=== PATIENT | female | born 1955 | race Caucasian/White ===

== ENCOUNTER 2023-05-05 09:58 | Outpatient (AMB) | payer OTHER, SELFPAY ==
--- NOTE | 2023-05-05 10:03 | MHC.OFFVIS ---
Intake Vital Signs 05/05/23 10:05 Height 5 ft Weight 194 lb 4 oz BMI 37.9 BP 150/82 H Blood Pressure Location Lt brachial Position Sitting Pulse 92 Pulse Source Pulse Oximeter Pulse Oximetry (%) 98 Oxygen Delivery Method Room Air Intake Visit Reasons: ENP-Neuropahty on both legs -Unable to Conf Intake Note: Pt presents today for neuropathy in legs for a long time. States sxs are worst when walking Allergies No Known Allergies Allergy (Verified 05/05/23 10:08) HPI HPI Comments History of Present Illness Details 67 y/o female patient with lumbar radiculopathy, T2 DM, HTN, CHF and CAD presents for new in-person visit for evaluation of neuropathy. Pt reports bilateral leg cramping, really bad sometimes and it bothers her sleep. She has frequent arousals with the leg cramping. Pt also reports numbness of her lower legs and pins and needle pain on her feet, L>R. Pt was taking magnesium but it is discontinued. She is having vitamin B12 injection monthly. Pt states that she has intermittent left hand numbness and it goes up to shoulder. Denies neck or back injury. Pt does not sleep well, due to the leg cramping and feet numbness. She also reports snoring and daytime sleepiness. Pt does not want to do sleep study to r/o sleep apnea. [facility] Medical History (Updated 05/05/23 @ 10:43 by Netta Garcia CNP) Appendicitis Gallbladder calculus Social History (Updated 05/05/23 @ 10:13 by Vivian Park) Household Members: Spouse Alcohol intake: never Patient Tobacco Use Status: Never used Tobacco Review of Systems Const All systems reviewed & are unremarkable except as noted in HPI and below ENT Reports Normal hearing present Neuro Reports Normal hearing present Physical Exam Vital Signs: Last Vital Signs Pulse 92 05/05/23 10:05 BP 150/82 H 05/05/23 10:05 Pulse Ox 98 05/05/23 10:05 Oxygen Delivery Method Room Air 05/05/23 10:05 BMI result Body Mass Index 37.9 Const General: cooperative Nutritional Appearance: obese Orientation/consciousness: patient oriented x3 Neck Neck: Yes full ROM and Yes supple Resp Effort & Inspection: normal respiratory effort and able to speak in complete sentences Neuro General: patient oriented x3 and moves all extremities Cranial nerves: Yes Bilaterally intact EOM present, Yes Normal facial strength present, Yes Midline tongue present, Yes Symmetric palate elevation present, Yes Normal hearing present, Yes Ability to bilaterally rotate head present and Yes Ability to bilaterally elevate shoulders present Cognition (Neuro): normal cognition Gait exam (Neuro): Antalgic gait present Motor exam (neuro): 5/5 motor strength present throughout, Pronator motor function not present and no tremor noted Deep tendon reflexes (DTR's): Right brachioradialis reflex intensity grade: 2+, Left brachioradialis reflex intensity grade: 2+, Right patellar reflex intensity grade: 3+ and Left patellar reflex intensity grade: 1+ Coordination: [id number] test normal Assessment & Plan Assessment & Plan (1) Neuropathy of lower extremity: Code(s): G57.90 - Unspecified mononeuropathy of unspecified lower limb Plan Advised patient to undergo EMG of lower extremity to assess neuropathy. Will check labs, TSH and ESR for reversible causes of neuropathy. Advised patient to try gabapentin 100 mg, 1-3 capsules q HS for muscle cramping and needle pain. Orders: Orders NE electromyogram (EMG) 05/05/23 G57.90 - Unspecified mononeuropathy of unspecified lower limb TSH reflex Free T4 05/05/23 E11.9 - Type 2 diabetes mellitus without complications, G57.90 - Unspecified mononeuropathy of unspecified lower limb Erythrocyte Sedimentation Rate 05/05/23 E11.9 - Type 2 diabetes mellitus without complications, G57.90 - Unspecified mononeuropathy of unspecified lower limb Medications: New gabapentin 300 mg (3 x 100 mg) PO BEDTIME 30 days 90 caps 3RF Coding Level of Care Code New Pt Level 4 (00786) Diagnoses Neuropathy of lower extremity G57.90
[2023-05-05 10:05] VITALS: BP 150/82; PULSE 92; O2SAT 98; BMI 37.9
== END 2023-05-05 10:51 | disposition home or self-care (01) ==
PROVIDERS: PCP Internal Medicine; Visit Provider Nurse Practitioner Family
DX: G57.90 Unspecified mononeuropathy of unspecified lower limb (principal)
CPT/HCPCS: 99204

== ENCOUNTER → 2023-05-05 09:58 | Outpatient (BNVA) | payer OTHER, SELFPAY | PROVIDERS: PCP Internal Medicine; Visit Provider Nurse Practitioner Family ==

== ENCOUNTER 2023-11-23 10:10 | Outpatient (AMB) | payer OTHER, SELFPAY ==
--- NOTE | 2023-11-23 10:37 | MHC.OFFVIS ---
Vital Signs 11/23/23 10:38 Height 5 ft Weight 196 lb BMI 38.3 BP 122/74 Blood Pressure Location Rt brachial Position Sitting Intake Visit Reasons: 3m f.uNeuropahty on both legs-CONF Intake Note: Patient presents for 3 month follow up neuropathy. Patient feeling tightness on her legs Allergies No Known Allergies Allergy (Verified 11/23/23 10:42) Medication List - Last Reconciled 11/23/23 by BOLIVAR Vanessa aspirin 81 mg PO DAILY cholecalciferol (vitamin D3) 10 mcg PO DAILY dulaglutide (Trulicity) 0.75 mg subcut QWEEK ezetimibe 10 mg PO DAILY magnesium oxide 400 mg PO BEDTIME 30 days metformin 1,000 mg PO BID metoprolol succinate ER 12.5 mg PO DAILY torsemide 10 mg PO DAILY HPI Comments Details: 68-yr-old female presents for f/u visit, pt accompanied by her dtr, Veronica. Pt denies any significant interval medical changes. Pt reports she continues to have BLE L > R nocturnal leg cramps - approx 3 times per week. She does not think she is taking Gabapentin. She otherwise thinks she sleeps ok. She can be restless and need to get up and move when sitting watching and watching TV. Can feel like something is crawling on her legs. 09/03/23, BLE EMG/NCS- was normal. May 2023 Labs- CBC, CMP, TSH, ESR, HgA1c- unremarkable. Ferritin not checked- but no h/o anemia and H&H and iron studies WNL. [facility] Medical History (Updated 11/23/23 @ 11:08 by BOLIVAR Vanessa) Appendicitis Gallbladder calculus Social History Household Members: Spouse Alcohol intake: never Patient Tobacco Use Status: Never used Tobacco Physical Exam Vital Signs: Last Vital Signs BP 122/74 11/23/23 10:38 BMI result Body Mass Index 38.3 Const General: cooperative and no acute distress Orientation/consciousness: patient oriented x3 Resp Effort & Inspection: normal respiratory effort and able to speak in complete sentences Neuro General: patient oriented x3 Cranial nerves: Yes CN's II-XII intact bilaterally Cognition (Neuro): normal cognition Psych Appearance: grossly normal Mental Status: mental status grossly normal Speech and movement: Normal speech and movement present Affect: normal affect Attitude: cooperative Assessment & Plan Assessment & Plan (1) Restless leg syndrome: Code(s): G25.81 - Restless legs syndrome Category: Medical (2) Leg cramps: Code(s): R25.2 - Cramp and spasm Category: Medical Plan Reviewed BLE EMG/NCS- normal Lab work-up was unremarkable. Pt never started Gabapentin, will hold as pt is not interested in taking prescription tx at this time. Pt agreeable to trial Mag Ox 400mg qhs- printed order gievn to dtr. May try OTC RLS topical cremas/lotions- info shared w/ pt/dtr May try weighted blankets, getting up and moving as needed. f/u in 1 yr or sooner prn. Medications: New magnesium oxide may hold for loose stools 400 mg PO BEDTIME 30 days 30 tabs 6RF Coding Level of Care Code Est Pt Level 3 (24731) Diagnoses Restless leg syndrome G25.81 Leg cramps R25.2
[2023-11-23 10:38] VITALS: BP 122/74; BMI 38.3
== END 2023-11-23 11:10 | disposition home or self-care (01) ==
PROVIDERS: Absent Provider Nurse Practitioner Family; PCP Internal Medicine; Visit Provider Nurse Practitioner Family
DX: G25.81 Restless legs syndrome (principal)
CPT/HCPCS: 99213

== ENCOUNTER → 2023-11-23 10:10 | Outpatient (BNVA) | payer OTHER, SELFPAY | PROVIDERS: Absent Provider Nurse Practitioner Family; PCP Internal Medicine; Visit Provider Nurse Practitioner Family ==